=== PATIENT | female | born 1950 | race Caucasian/White ===

== ENCOUNTER 2016-06-22 20:46 | Emergency (ER) | payer MEDICARE, OTHER ==
[~2016-06-22] VITALS: Ht 165.1 cm; Wt 68.0 kg
[~2016-06-22 20:46] MED LIST: CODE1CAP21 PO; DIAZ10TA4 PO; IBUP-1482 PO; OXYC-34 PO; SIMV80TA5 PO; SUMA100T16 PO
[2016-06-22 23:19] VITALS: BP 96/56
--- NOTE | 2016-06-22 23:19 | NUR ---
BB RA; PT AMBULATORY TO ER BED 18 C/O BACK PAIN. PT AOX 3 RR EVEN AND UNLABORED. NO SOB NOTED. NAD NOTED. NO NVD AT THIS TIME. PT NOT DIAPHORETIC. PT WAITING FOR MD VELAZQUEZ.
[2016-06-22] MEDS ORDERED: oxyCODONE/APAP (5/325 MG) 1 UDTAB TABLET ONE (23:43)
[2016-06-22] MEDS ORDERED: KETOROLAC TROMETHAMINE INJ 30 MG/ML VIAL ONE (23:44)
[2016-06-22] MEDS: KETOROLAC TROMETHAMINE INJ 30 MG/ML VIAL IM ONE (23:51)
[2016-06-22] MEDS: oxyCODONE/APAP (5/325 MG) 1 UDTAB TABLET PO ONE (23:52)
[2016-06-23] MEDS ORDERED: GABA-532 PO (13:15)
[2016-06-23] MEDS ORDERED: ALBU8.5H2 IH (13:15)
[2016-06-23] MEDS ORDERED: METF500T4 PO (13:15)
[2016-06-23] MEDS ORDERED: NYST30CR3 TP (13:15)
[2016-06-23] MEDS ORDERED: ZOLP10TA6 PO (13:15)
[2016-06-23] MEDS ORDERED: FLUO15CR2 TP (13:15)
[2016-06-23] MEDS ORDERED: BUTA-247 PO (13:15)
[2016-06-23] MEDS ORDERED: ATOR40TA PO (13:15)
[2016-06-23] MEDS ORDERED: DEXT15DR6 EACHEYE (13:18)
[2016-06-23] MEDS ORDERED: ASPI81TA2 PO (15:09)
== END 2016-06-23 00:59 | disposition home or self-care (01) ==
LOC: ER 20:47
DX: M54.5 Low back pain (principal); G89.29 Other chronic pain
CPT/HCPCS: A4606; J1885; Z7610

== ENCOUNTER 2016-06-23 11:37 | Inpatient (IN) | payer MEDICARE, OTHER ==
[~2016-06-23] VITALS: Ht 170.2 cm; Wt 64.0 kg
--- NOTE | 2016-06-23 12:25 | NUR ---
SW was informed by [facility] security that pt. was discharged from ER last night and has been sleeping overnight in the sub-waiting area with all her belongings. SW met with pt. in the waiting area. Pt. had multiple bags with her. Pt.was tangential and is A&O x 4. Pt. is 66 year old and was very irritable. Pt. was well dressed. Pt. informed SW she was living in a motel but ran out of money and had to move. Pt. would not elaborate to the length of time she has been homeless. Pt. seemed to be very knowledgeable about Homeless community resources. Pt. has had a prior psychiatric admission at [facility] in April 2015. Pt. was discharged from ED earlier today but returned back to [facility] soon afterwards. Pt. was not very cooperative and upfront in answering questions that were asked of her. Often times, Pt. was yelling at during the assessment. KWASI consulted with Plant Wire Chief Luisa Lemos. Plant Wire Chief Luisa Lemos met with pt. for a crisis evaluation alongside with KWASI. Pt. refused to talk to SW. Per foam cutting supervisor Luisa Lemos, Pt. does not show insight into her mental illness. Pt. is unable to articulate a plan for her care and her thinking was rather disorganized during her crisis evaluation. Pt. did not acknowledge any wish to harm herself or others. Pt. does meet criteria for grave disability and accepting psychiatrist will be Dr. Hickman. Pt. will be admitted to [facility] on a 5150 for grave disability. KWASI along with [facility] staff [facility] escorted pt. to [facility] along with her belongings.
[2016-06-23] MEDS ORDERED: MAG HYDROX/AL HYDROX/SIMETH 30 ML UDC PO PRN (12:30)
[2016-06-23] MEDS ORDERED: ACETAMINOPHEN 325 MG TABLET PO PRN (12:30)
[2016-06-23] MEDS ORDERED: MAGNESIUM HYDROXIDE 30 ML UDC PO PRN (12:30)
[2016-06-23] MEDS ORDERED: METF500T4 PO (13:15)
[2016-06-23] MEDS ORDERED: BUTA-247 PO (13:15)
[2016-06-23] MEDS ORDERED: ZOLP10TA6 PO (13:15)
[2016-06-23] MEDS ORDERED: ATOR40TA PO (13:15)
[2016-06-23] MEDS ORDERED: NYST30CR3 TP (13:15)
[2016-06-23] MEDS ORDERED: GABA-532 PO (13:15)
[2016-06-23] MEDS ORDERED: FLUO15CR2 TP (13:15)
[2016-06-23] MEDS ORDERED: ALBU8.5H2 IH (13:15)
[2016-06-23] MEDS ORDERED: DEXT15DR6 EACHEYE (13:18)
[2016-06-23] MEDS ORDERED: ASPI81TA2 PO (15:09)
--- NOTE | 2016-06-23 15:48 | NUR ---
[facility] RN NOTES ADMITTED PT FROM ER ON 5150 HOLD FOR GD. PT. ARRIVED TO THE FLOOR AT 11:00 PT IS A/O X3 AMBULATORY AGITATED RESTLESS, ANXIOUS HYPERVERBAL. SKIN INTACT ON THE VISIBLE AREAS, PATIENT REFUSED FULL BODY ASSESSMENT. ORIENTED TO UNIT POLICY, BELONGINGS CHECKED FOR CONTRABAND, BOTH MD AWARE OF NEW ADMISSION, NEW ADMISSION ORDERS RECEIVED AND CARRIED OUT, DR. LOVELL MADE AWARE TO RECONCILE MEDS. PATIENT PROVIDED WITH SAFE AND CALM ENVIRONMENT AND CONTINUE TO MONITOR FOR SAFETY AND BEHAVIOR.
--- NOTE | 2016-06-23 16:00 | NUR ---
[facility] RN: DNR ORDER RECEIVED FROM DR. LOVELL.
[2016-06-23 16:05] VITALS: BP 116/72
[2016-06-23] MEDS ORDERED: FLUOCINONIDE 0.05% CREAM 30 GM TUBE TP PRN (19:30)
[2016-06-23] MEDS ORDERED: oxyCODONE/APAP (5/325 MG) 1 UDTAB TABLET PO PRN (19:30)
[2016-06-23] MEDS ORDERED: POLYVINYL ALCOHOL 15 ML BOTTLE OP PRN (19:30)
[2016-06-23] MEDS: ALBUTEROL FS 2.5 MG/3 ML VIAL.NEB NEB SCH (19:30)
[2016-06-23 20:00] VITALS: BP 125/96
--- NOTE | 2016-06-23 20:54 | NUR ---
RT DAKOTA REFUSED MEDS. DOES NOT WANT TO BE BOTHERED.
[2016-06-23] MEDS ORDERED: BUTALB/APAP/CAFFEINE 1 EACH TABLET PO PRN (21:00)
[2016-06-24] MEDS: ALBUTEROL FS 2.5 MG/3 ML VIAL.NEB NEB SCH ×4 (00:47→20:49)
--- NOTE | 2016-06-24 00:48 | NUR ---
RT PT DOES NOT WANT ROUTINE HHN TX. NO SOB OR DISTRESS NOTED.
[2016-06-24 07:58] VITALS: BP 99/52
[2016-06-24 08:18] LABS: ALBUMIN 3.3 g/dL (3.4-5.0); BILIRUBIN,TOTAL 0.2 mg/dL (0.2-1.0); CALCIUM, SERUM 8.7 mg/dL (8.5-10.1); CREATININE 0.7 mg/dL (0.6-1.3); POTASSIUM 4.2 mmol/L (3.5-5.1); TOTAL PROTEIN, SERUM 6.2 g/dL (6.4-8.2)
[2016-06-24] MEDS ORDERED: SUMATRIPTAN SUCCINATE 100 MG TABLET PO PRN (09:00)
[2016-06-24] MEDS ORDERED: FLUOCINONIDE 0.05% CREAM 30 GM TUBE TP PRN (09:00)
[2016-06-24] MEDS: ASPIRIN 81 MG TAB.CHEW PO SCH (11:46)
[2016-06-24] MEDS: IBUPROFEN 400 MG TABLET PO SCH ×3 (11:46→17:00)
[2016-06-24] MEDS: ATORVASTATIN 40 MG TABLET PO SCH (11:46)
[2016-06-24] MEDS: METFORMIN 500 MG TABLET PO SCH ×2 (11:46→17:00)
[2016-06-24] MEDS: GABAPENTIN 100 MG CAPSULE PO SCH ×2 (11:46→17:00)
[2016-06-24] MEDS: DULOXETINE HCL 30 MG CAPSULE.DR PO SCH (13:27)
[2016-06-24 16:07] VITALS: BP 139/80
[2016-06-24 20:00] VITALS: BP 141/72
[2016-06-24] MEDS: TEMAZEPAM 7.5 MG CAPSULE PO PRN (23:21)
[2016-06-25] MEDS: ALBUTEROL FS 2.5 MG/3 ML VIAL.NEB NEB SCH ×4 (02:35→20:20)
[2016-06-25 08:28] VITALS: BP 119/66
[2016-06-25] MEDS: ATORVASTATIN 40 MG TABLET PO SCH (08:32)
[2016-06-25] MEDS: GABAPENTIN 100 MG CAPSULE PO SCH ×2 (08:32→16:52)
[2016-06-25] MEDS: IBUPROFEN 400 MG TABLET PO SCH ×3 (08:32→16:50)
[2016-06-25] MEDS: ASPIRIN 81 MG TAB.CHEW PO SCH (08:32)
[2016-06-25] MEDS: METFORMIN 500 MG TABLET PO SCH ×2 (08:32→16:53)
[2016-06-25] MEDS: DULOXETINE HCL 30 MG CAPSULE.DR PO SCH (08:34)
[2016-06-25] MEDS: clonazePAM 0.5 MG TABLET PO PRN ×2 (11:36→17:54)
--- NOTE | 2016-06-25 11:36 | NUR ---
GPS/RN PATIENT ANXIOUS, RESTLESS, REQUESTED KLONOPIN PO. ADMINISTERED ORDERED, WILL CONTINUE TO MONITOR.
[2016-06-25 16:26] VITALS: BP 129/70
--- NOTE | 2016-06-25 17:56 | NUR ---
GPS/RN PATIENT ANXIOUS, RESTLESS, REQUESTED KLONOPIN PO. ADMINISTERED ORDERED, WILL CONTINUE TO MONITOR.
[2016-06-25 19:53] VITALS: BP 105/51
--- NOTE | 2016-06-25 20:32 | NUR ---
CHECKED ON PT FOR BREATHING TX BUT PT WAS IN SHOWER. RN NOTIFIED.
--- NOTE | 2016-06-25 20:58 | NUR ---
PT REFUSED HHNTX AT THIS TIME
[2016-06-25] MEDS: TEMAZEPAM 7.5 MG CAPSULE PO PRN (22:59)
[2016-06-26] MEDS: ALBUTEROL FS 2.5 MG/3 ML VIAL.NEB NEB SCH ×4 (01:16→19:30)
--- NOTE | 2016-06-26 01:18 | NUR ---
PT REFUSED BREATHING TX AT THIS TIME. PT DOESN'T WANT TO BE BOTHERED.
--- NOTE | 2016-06-26 01:32 | NUR ---
Pt has been anxious, guarded, hypervigilant, & blunted but redirectable. She has also been refusing her breathing treatments.
[2016-06-26 08:00] VITALS: BP 100/70
[2016-06-26] MEDS: ASPIRIN 81 MG TAB.CHEW PO SCH (08:10)
[2016-06-26] MEDS: METFORMIN 500 MG TABLET PO SCH ×2 (08:10→17:18)
[2016-06-26] MEDS: ATORVASTATIN 40 MG TABLET PO SCH (08:10)
[2016-06-26] MEDS: DULOXETINE HCL 30 MG CAPSULE.DR PO SCH (08:10)
[2016-06-26] MEDS: IBUPROFEN 400 MG TABLET PO SCH ×3 (08:10→17:18)
[2016-06-26] MEDS: GABAPENTIN 100 MG CAPSULE PO SCH ×2 (08:10→17:18)
[2016-06-26] MEDS: clonazePAM 0.5 MG TABLET PO PRN ×2 (08:33→16:25)
--- NOTE | 2016-06-26 08:35 | NUR ---
GPS/RN PATIENT ANXIOUS, RESTLESS, REQUESTED KLONOPIN PO. ADMINISTERED ORDERED, WILL CONTINUE TO MONITOR.
--- NOTE | 2016-06-26 14:53 | NUR ---
Pt. is referred and not accepted to [facility] [address] [place] [address] per Kwaku at the facility due to her previously known behavior at their sister facility. Addendum: 06/30/16 at 1624 by FABIAN VILLALPANDO Per Kwaku pt. is not allowed to be at any of their other sister facilities due to her behavior.
[2016-06-26 16:00] VITALS: BP 144/60
--- NOTE | 2016-06-26 16:25 | NUR ---
GPS/RN PATIENT ANXIOUS, RESTLESS, REQUESTED KLONOPIN PO. ADMINISTERED ORDERED, WILL CONTINUE TO MONITOR.
--- NOTE | 2016-06-26 16:40 | NUR ---
Initial discharge plan: SW is homeless and may need placement upon discharge. SW will follow up with pt and MD and will help form safe and proper discharge. At this point, pt is unsure of what she wants to do and states that a longterm is not an option for her as she needs to be independent.
[2016-06-26 20:00] VITALS: BP 129/74
[2016-06-26 20:13] VITALS: BP 129/74
--- NOTE | 2016-06-26 20:37 | NUR ---
NOTIFIED BY RN THAT PT DECLINED BREATHING TX.
[2016-06-27] MEDS: ALBUTEROL FS 2.5 MG/3 ML VIAL.NEB NEB SCH ×3 (01:14→13:30)
[2016-06-27 08:00] VITALS: BP 117/71
[2016-06-27] MEDS: GABAPENTIN 100 MG CAPSULE PO SCH ×2 (08:29→16:42)
[2016-06-27] MEDS: DULOXETINE HCL 30 MG CAPSULE.DR PO SCH (08:29)
[2016-06-27] MEDS: ASPIRIN 81 MG TAB.CHEW PO SCH (08:29)
[2016-06-27] MEDS: IBUPROFEN 400 MG TABLET PO SCH ×3 (08:30→16:42)
[2016-06-27] MEDS: ATORVASTATIN 40 MG TABLET PO SCH (08:30)
[2016-06-27] MEDS: METFORMIN 500 MG TABLET PO SCH ×2 (08:30→16:42)
[2016-06-27] MEDS: clonazePAM 0.5 MG TABLET PO PRN ×2 (08:38→20:50)
--- NOTE | 2016-06-27 12:53 | NUR ---
KWASI will refer pt. to [facility] [phone] and will follow up to see if pt. is accepted. Addendum: 06/30/16 at 1619 by FABIAN VILLALPANDO KWASI spoke with [facility] [phone] who agreed to accept the patient; however, pt. refuses to go to her facility.
[2016-06-27] MEDS ORDERED: ALBUTEROL FS 2.5 MG/3 ML VIAL.NEB NEB PRN (14:30)
[2016-06-27 16:00] VITALS: BP 114/72
[2016-06-27] MEDS: oxyCODONE/APAP (5/325 MG) 1 UDTAB TABLET PO PRN (18:11)
--- NOTE | 2016-06-27 18:15 | NUR ---
GPS/RN NOTES PATIENT COMPLAINED OF PAIN ON THE NECK AND BACK, NORCO 5/325MG X 2 TABS GIVEN ORDERED. WILL CONTINUE TO MONITOR.
--- NOTE | 2016-06-27 19:48 | NUR ---
GPS/RN NOTE: WATCHING TV PROGRAM AT THIS TIME. AWAKE, ALERT, ORIENTED X3. NO ACUTE RESPIRATORY DISTRESS NOTED. NO COMPLAINTS OR S/S OF ANY PAIN AT THIS TIME. WILL CONTINUE TO MONITOR FOR SAFETY.
[2016-06-27 20:06] VITALS: BP 107/72
--- NOTE | 2016-06-27 20:51 | NUR ---
GPS/RN NOTE: PATIENT REQUESTING FOR HER KLONOPIN, C/O THAT SHE FEELS ANXIOUS, 0.25 MG OF KLONOPIN TAB PO GIVEN.
[2016-06-27] MEDS: TEMAZEPAM 7.5 MG CAPSULE PO PRN (23:21)
--- NOTE | 2016-06-27 23:22 | NUR ---
GPS/RN NOTE: PATIENT UNABLE TO SLEEP, REQUESTED FOR HER SLEEPING PILL. TEMAZEPAM 15 MG CAP 1 PO GIVEN.
[2016-06-28] MEDS: METFORMIN 500 MG TABLET PO SCH ×2 (07:55→16:39)
[2016-06-28] MEDS: GABAPENTIN 100 MG CAPSULE PO SCH ×2 (07:55→16:39)
[2016-06-28] MEDS: ASPIRIN 81 MG TAB.CHEW PO SCH (07:55)
[2016-06-28] MEDS: ATORVASTATIN 40 MG TABLET PO SCH (07:55)
[2016-06-28] MEDS: IBUPROFEN 400 MG TABLET PO SCH ×3 (07:55→16:39)
[2016-06-28 08:00] VITALS: BP 125/68
[2016-06-28] MEDS: DULOXETINE HCL 30 MG CAPSULE.DR PO SCH (08:40)
[2016-06-28] MEDS: clonazePAM 0.5 MG TABLET PO PRN ×2 (08:40→15:23)
--- NOTE | 2016-06-28 08:40 | NUR ---
GPS/RN PATIENT ANXIOUS, RESTLESS, REQUESTED KLONOPIN PO, ADMINISTERED ORDERED, WILL CONTINUE TO MONITOR.
--- NOTE | 2016-06-28 15:23 | NUR ---
GPS/RN PATIENT ANXIOUS, RESTLESS, REQUESTED KLONOPIN PO, ADMINISTERED ORDERED, WILL CONTINUE TO MONITOR.
[2016-06-28 16:00] VITALS: BP 147/75
[2016-06-28] MEDS: oxyCODONE/APAP (5/325 MG) 1 UDTAB TABLET PO PRN (16:42)
--- NOTE | 2016-06-28 16:42 | NUR ---
GPS/RN PATIENT REPORTS 8/10 BACK PAIN, ADMINISTERED PERCOCET PO ORDERED. WILL CONTINUE TO MONITOR
--- NOTE | 2016-06-28 20:00 | NUR ---
RN NOTES: PT IN BED, A/O X3, ON ROOM AIR, DENIES ANY CHEST PAIN DISCOMFORT, PT COOPERATIVE AND CALM BUT NOTED TO BE EASILY GET IRRITATED. PT HAS LIMITED CONCENTRATION AND POOR JUDGMENT. SAFETY PRECAUTIONS FOR FALL INITAITED, WILL CONTINUE FREQUENT MONITORING [id number] FOR SAFETY AND BEHAVIOR
--- NOTE | 2016-06-28 20:30 | NUR ---
RN NOTES: PT SEEN BY DR GARCIA, NEUROLOGIST, HE DISCUSSED SOME TEST FOR THE PT BUT PT REFUSED TREATMENT,
[2016-06-28 20:40] VITALS: BP 133/68
[2016-06-28] MEDS: TEMAZEPAM 7.5 MG CAPSULE PO PRN (23:12)
--- NOTE | 2016-06-28 23:12 | NUR ---
RN NOTES: PT REQUESTED FOR HER SLEEPING PILL, SHE STATED SHE ASKED THE DOCTOR TO INCREASE THE DOSAGE BECAUSE THE PREVIOUS DOSAGE DOES NOT HELP HER TO GET A GOOD NIGHT SLEEP, PRN RESTORIL 22.5 MG TAB PO ADMINISTERED TO THE PT AT THIS TIME, EDUCATE PT REGARDING MEDICATION SIDE EFFECT, WILL CONTINUE TO MONITOR AND REASSESS
[2016-06-29 08:00] VITALS: BP 101/57
[2016-06-29] MEDS: ATORVASTATIN 40 MG TABLET PO SCH (08:36)
[2016-06-29] MEDS: DULOXETINE HCL 30 MG CAPSULE.DR PO SCH (08:36)
[2016-06-29] MEDS: METFORMIN 500 MG TABLET PO SCH ×2 (08:36→16:35)
[2016-06-29] MEDS: IBUPROFEN 400 MG TABLET PO SCH ×3 (08:36→16:35)
[2016-06-29] MEDS: GABAPENTIN 100 MG CAPSULE PO SCH ×2 (08:36→16:35)
[2016-06-29] MEDS: ASPIRIN 81 MG TAB.CHEW PO SCH (08:36)
[2016-06-29] MEDS: clonazePAM 0.5 MG TABLET PO PRN ×2 (08:58→18:08)
--- NOTE | 2016-06-29 09:00 | NUR ---
[facility]PS RN: PATIENT C/O ANXIETY AND REQUESTED KLONOPIN. ADMINISTERED KLONOPIN 0.25 MG PO ORDERED. PROVIDED WITH CALM AND SAFE ENVIRONMENT, CONTINUE TO MONITOR.
[2016-06-29] MEDS: oxyCODONE/APAP (5/325 MG) 1 UDTAB TABLET PO PRN ×2 (11:27→19:44)
[2016-06-29 16:00] VITALS: BP 118/59
[2016-06-29 20:00] VITALS: BP 101/66
[2016-06-29] MEDS: TEMAZEPAM 7.5 MG CAPSULE PO PRN (22:02)
[2016-06-30] MEDS: clonazePAM 0.5 MG TABLET PO PRN ×2 (04:55→15:31)
[2016-06-30 08:00] VITALS: BP 97/57
[2016-06-30] MEDS: IBUPROFEN 400 MG TABLET PO SCH ×3 (09:31→16:12)
[2016-06-30] MEDS: ASPIRIN 81 MG TAB.CHEW PO SCH (09:31)
[2016-06-30] MEDS: ATORVASTATIN 40 MG TABLET PO SCH (09:31)
[2016-06-30] MEDS: DULOXETINE HCL 30 MG CAPSULE.DR PO SCH (09:31)
[2016-06-30] MEDS: METFORMIN 500 MG TABLET PO SCH ×2 (09:31→16:12)
[2016-06-30] MEDS: GABAPENTIN 100 MG CAPSULE PO SCH ×2 (09:31→16:12)
[2016-06-30] MEDS: oxyCODONE/APAP (5/325 MG) 1 UDTAB TABLET PO PRN (11:24)
--- NOTE | 2016-06-30 15:35 | NUR ---
[facility] RN: ADMINISTERED KLONOPIN 0.25 MG PO FOR C/O ANXIETY. VS STABLE, CONTINUE TO MONITOR.
[2016-06-30 16:00] VITALS: BP 103/58
--- NOTE | 2016-06-30 16:20 | NUR ---
SW contacted Lucy from [facility] [phone] about pt and per Lucy, pt. is very difficult as she already knows her from before and will not be able to accept her at any of her facilities.
--- NOTE | 2016-06-30 16:22 | NUR ---
KWASI contacted Brit [phone], who works with different board and cares, and she agreed to come and assess the patient today but has not yet. KWASI will follow up
--- NOTE | 2016-06-30 16:23 | NUR ---
SW spoke with pt. but pt. refuses to be placed in a care home, does not want a large facility with too many people and does not want a intermediate or a motel at this time. Pt. is very difficult as she has limited income and is very selective with the area and the type of place she wants to go to. KWASI will follow up
[2016-06-30 20:00] VITALS: BP 123/67
[2016-06-30] MEDS: TEMAZEPAM 7.5 MG CAPSULE PO PRN (22:22)
[2016-07-01] MEDS: clonazePAM 0.5 MG TABLET PO PRN ×3 (03:11→18:37)
[2016-07-01 08:24] VITALS: BP 100/62
[2016-07-01] MEDS: IBUPROFEN 400 MG TABLET PO SCH ×3 (09:49→16:57)
[2016-07-01] MEDS: ATORVASTATIN 40 MG TABLET PO SCH (09:49)
[2016-07-01] MEDS: GABAPENTIN 100 MG CAPSULE PO SCH ×2 (09:49→16:57)
[2016-07-01] MEDS: DULOXETINE HCL 30 MG CAPSULE.DR PO SCH (09:49)
[2016-07-01] MEDS: ASPIRIN 81 MG TAB.CHEW PO SCH (09:49)
[2016-07-01] MEDS: METFORMIN 500 MG TABLET PO SCH ×2 (09:49→16:57)
[2016-07-01] MEDS: oxyCODONE/APAP (5/325 MG) 1 UDTAB TABLET PO PRN ×2 (09:53→17:41)
--- NOTE | 2016-07-01 11:15 | NUR ---
GPS RN: ADMINISTERED KLONOPIN 0.25 MG PO FOR C/O ANXIETY PER PATIENT'S REQUEST. PROVIDED WITH CALM AND SAFE ENVIRONMENT, VS STABLE, CONTINUE TO MONITOR.
[2016-07-01 15:59] VITALS: BP 109/71
--- NOTE | 2016-07-01 18:39 | NUR ---
[facility]PS RN: ADMINISTERED KLONOPIN 0.25 MG PO FOR C/O ANXIETY, VSS, CONTINUE TO MONITOR.
[2016-07-01 20:00] VITALS: BP 108/70
[2016-07-01] MEDS: TEMAZEPAM 7.5 MG CAPSULE PO PRN (22:00)
[2016-07-02] MEDS: clonazePAM 0.5 MG TABLET PO PRN ×3 (03:30→16:33)
[2016-07-02 08:00] VITALS: BP 116/70
[2016-07-02] MEDS: GABAPENTIN 100 MG CAPSULE PO SCH ×2 (08:48→16:33)
[2016-07-02] MEDS: ASPIRIN 81 MG TAB.CHEW PO SCH (08:48)
[2016-07-02] MEDS: ATORVASTATIN 40 MG TABLET PO SCH (08:49)
[2016-07-02] MEDS: DULOXETINE HCL 30 MG CAPSULE.DR PO SCH (08:49)
[2016-07-02] MEDS: METFORMIN 500 MG TABLET PO SCH ×2 (08:49→16:33)
[2016-07-02] MEDS: IBUPROFEN 400 MG TABLET PO SCH ×3 (08:49→16:33)
[2016-07-02] MEDS: oxyCODONE/APAP (5/325 MG) 1 UDTAB TABLET PO PRN ×2 (10:25→19:45)
--- NOTE | 2016-07-02 10:30 | NUR ---
GPS/RN PATIENT REPORTS 8/10 FOR GENERALIZED PAIN, ADMINISTERED PERCOCET PO ORDERED. WILL CONTINUE TO MONITOR
[2016-07-02 15:49] VITALS: BP 103/60
[2016-07-02 19:57] VITALS: BP 121/69
[2016-07-02] MEDS: TEMAZEPAM 7.5 MG CAPSULE PO PRN (22:27)
[2016-07-03] MEDS: clonazePAM 0.5 MG TABLET PO PRN ×3 (03:04→19:54)
[2016-07-03 08:00] VITALS: BP 100/55
[2016-07-03] MEDS: METFORMIN 500 MG TABLET PO SCH ×2 (08:25→16:32)
[2016-07-03] MEDS: GABAPENTIN 100 MG CAPSULE PO SCH ×2 (08:25→16:32)
[2016-07-03] MEDS: ATORVASTATIN 40 MG TABLET PO SCH (08:25)
[2016-07-03] MEDS: ASPIRIN 81 MG TAB.CHEW PO SCH (08:25)
[2016-07-03] MEDS: DULOXETINE HCL 30 MG CAPSULE.DR PO SCH (08:26)
[2016-07-03] MEDS: IBUPROFEN 400 MG TABLET PO SCH ×3 (08:26→16:32)
[2016-07-03] MEDS: oxyCODONE/APAP (5/325 MG) 1 UDTAB TABLET PO PRN ×2 (09:36→17:45)
--- NOTE | 2016-07-03 09:37 | NUR ---
GPS/RN PATIENT REPORTS 10 FOR lower back PAIN, ADMINISTERED PERCOCET PO ORDERED. WILL CONTINUE TO MONITOR
--- NOTE | 2016-07-03 11:20 | NUR ---
KWASI contacted Brit [phone] and she is able to accept the patient at the [place] location. KWASI notified the patient, pt. refuses to go to [place]. None of the other houses at different areas have availability at this time.
--- NOTE | 2016-07-03 11:32 | NUR ---
[id number]: GAVE KLONOPIN 0.25 MG PO DUE TO SEVERE ANXIETY UPON PT REQUEST AND WILL CONTINUE TO MONITOR FOR EFFECTIVENESS OF MEDICATION
--- NOTE | 2016-07-03 11:43 | NUR ---
SW spoke with pt again regarding other options, pt. continues to insist that she needs something for not even a month as she is going to make her own arrangements after and will be renting an apartment with a roommate. Pt. continues to refuse two options provided and refuses to be referred to an assisted living, correction, or any other large facility. Pt. refuses to go to a homeless custodial and refuses to go to a motel also, stating, it will cost too much.
[2016-07-03 16:00] VITALS: BP 102/55
--- NOTE | 2016-07-03 17:48 | NUR ---
pt. c/o generalized body pain 12/03 oxycodone 1mg po prn given vital signs wnl will conitinue to monitor Addendum: 07/03/16 at 1759 by DAVID CORBETT RN gave oxycodone acetaminophen 5/325 mg (2tabs)
[2016-07-03 19:44] VITALS: BP 100/60
[2016-07-03] MEDS: TEMAZEPAM 7.5 MG CAPSULE PO PRN (23:05)
[2016-07-04] MEDS: clonazePAM 0.5 MG TABLET PO PRN ×2 (05:08→10:47)
[2016-07-04 08:00] VITALS: BP 100/65
[2016-07-04] MEDS: DULOXETINE HCL 30 MG CAPSULE.DR PO SCH (08:39)
[2016-07-04] MEDS: ASPIRIN 81 MG TAB.CHEW PO SCH (08:39)
[2016-07-04] MEDS: ATORVASTATIN 40 MG TABLET PO SCH (08:39)
[2016-07-04] MEDS: IBUPROFEN 400 MG TABLET PO SCH (08:39)
[2016-07-04] MEDS: METFORMIN 500 MG TABLET PO SCH (08:39)
[2016-07-04] MEDS: GABAPENTIN 100 MG CAPSULE PO SCH (08:40)
[2016-07-04] MEDS: oxyCODONE/APAP (5/325 MG) 1 UDTAB TABLET PO PRN (09:16)
--- NOTE | 2016-07-04 09:17 | NUR ---
gave oxycodone acetaminophen 5/325 mg (2tabs) PO PRN pt. c/o generalized body pain 11/02 vital signs wnl will continue to monitor
--- NOTE | 2016-07-04 10:38 | NUR ---
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 PT HAS BRIGHT AFFECT. PT IS ACTIVE. PT IS CONVERSING WITH PEERS. PT ATE WELL.
--- NOTE | 2016-07-04 10:51 | NUR ---
[facility] RN: ADMINISTERED KLONOPIN 0.25 MG PO PRN UP ON PT. REQUEST FOR C/O ANXIETY RESTLESS, , VSS,WNL WILL CONTINUE TO MONITOR.
--- NOTE | 2016-07-04 11:00 | NUR ---
[id number]: PT HAS BRIGHT AFFECT. PT PARTICIPATED IN ACTIVITIES. PT IS ABLE TO FOLLOW RULES. PT IS ENGAGED IN CONVERSATION WITH PEERS. PT APPLIED MAKEUP WITH STAFF SUPERVISION. PT IS CALM AND COOPERATIVE WITH STAFF.
--- NOTE | 2016-07-04 11:45 | NUR ---
SW spoke with the patient again, and pt. still refuses to go to any of the available options. Pt. continues to request a house she can go to for short term with the area of her preference and does not want to spend more than what she has (stating there is more money, but when SW gives options with more money she declines). Pt. is very difficult and per SS director, needs to be escorted out as she has been ready for discharge but does not agree to any options provided. Pt. even requested to speak with the SS director with the same outcome. Pt. continues to think she needs to get more than she is provided.
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
--- NOTE | 2016-07-04 12:45 | NUR ---
[id number]: PT IS ACCUSING STAFF OF STEALING POSSESSIONS.
--- NOTE | 2016-07-04 13:30 | NUR ---
[id number]: CERTIFIED WELLNESS PROGRAM COORDINATOR GAVE SAFE OPTIONS FOR DISCHARGE TO EITHER MOTEL, HOMELESS SNF, SISTER'S HOUSE, ASSISTED LIVING, SNF BUT PT REFUSED. PT REFUSED TO GET IN THE TAXI AND STATED, "I WANT TO GO WHEREVER I WANT TO GO," ESCORTED PT TO LOBBY TO THE TAXI BUT PT REFUSED. PT WANTED TO SMOKE AND STATED, "I DON'T WANT TO RIDE THE TAXI AND I HAVE ENOUGH MONEY." PT IS A/O4. PT DENIES SI/HI/AVH. PT IS 66 YEARS FEMALE. COMPLIANT WITH MEDICATIONS, COOPERATIVE WITH TREATMENT PLANS. BEHAVIORAL IMPROVED, PSYCHIATRIC TX PLANS MET, MEDICAL TX PLANS DEFERRED FOR CONTINUAL MONITORING. EDUCATED PT ABOUT AFTER CARE PLAN AND COPY PROVIDED. RETURN PERSONAL BELONGINGS TO PT. MEDICATIONS RECONCILED WITH DR. AHUJA AND DR. SNOW. PT SIGNED DISCHARGE PAPERWORK. PT REFUSED SKIN ASSESSMENT.
--- NOTE | 2016-07-04 14:10 | NUR ---
Discharge note: Pt. agreed to be discharged to [facility] [address] [facility] [phone] after she was told she needs to be escorted out with security as at this point she is trespassing as she is discharged and refuses to leave. Pt. then was taken down as taxi arrived and was provided with a taxi voucher. As she was downstairs, pt. refused to get into the taxi and said she wants to go where she wants to go, and that she wants to smoke. Pt. was provided with resources and numbers of the accepting facilities in case she changes her mind. Pt. was alert and oriented , denied having suicidal/homicidal ideations, declined all resources, and wanted to make her own arrangements as she refused everything arranged by the hospital. provided pt. with a referral to [facility] [address] [facility] [id number] . Pt. is a smoker, hence, was [address] [facility] 5:30 PM. Discharge instructions were provided to the patient and discharge paperwork has been signed.
== END 2016-07-04 13:30 | disposition home or self-care (01) | DRG 885 ==
LOC: GPS 11:37
PROVIDERS: ADMIT Psychiatry & Neurology Psychiatry; ATTEND Internal Medicine
DX: F33.2 Major depressive disorder, recurrent severe without psychotic features (principal); E78.5 Hyperlipidemia, unspecified; I10 Essential (primary) hypertension; K21.9 Gastro-esophageal reflux disease without esophagitis; E11.42 Type 2 diabetes mellitus with diabetic polyneuropathy; Z59.0 Homelessness; M06.9 Rheumatoid arthritis, unspecified; G89.29 Other chronic pain; M54.5 Low back pain; G62.9 Polyneuropathy, unspecified; F41.0 Panic disorder [episodic paroxysmal anxiety]; J44.9 Chronic obstructive pulmonary disease, unspecified; M54.17 Radiculopathy, lumbosacral region; Z66 Do not resuscitate; Z79.84 Long term (current) use of oral hypoglycemic drugs
CPT/HCPCS: 36415; 80053-TC; 80061-TC; 94799-TC

== ENCOUNTER 2016-07-15 03:16 | Emergency (ER) | payer MEDICARE, OTHER ==
[~2016-07-15] VITALS: Ht 170.2 cm; Wt 59.0 kg
[~2016-07-15 03:16] MED LIST changes: +ALBU8.5H2 IH; +ASPI81TA2 PO; +ATOR40TA PO; +BUTA-247 PO; -CODE1CAP21 PO; +DEXT15DR6 EACHEYE; -DIAZ10TA4 PO; +FLUO15CR2 TP; +GABA-532 PO; +METF500T4 PO; +NYST30CR3 TP; -SIMV80TA5 PO
[2016-07-15 03:20] VITALS: BP 130/77
[2016-07-15] MEDS ORDERED: KETOROLAC TROMETHAMINE INJ 60 MG/2 ML VIAL IM ONE (04:30)
[2016-07-15] MEDS ORDERED: KETOROLAC TROMETHAMINE INJ 30 MG/ML VIAL ONE (04:35)
== END 2016-07-15 06:10 | disposition home or self-care (01) ==
LOC: ER 03:17
DX: M54.5 Low back pain (principal); G89.29 Other chronic pain; E11.9 Type 2 diabetes mellitus without complications; Z79.82 Long term (current) use of aspirin
CPT/HCPCS: A4606; J1885; Z7610

== ENCOUNTER 2016-08-02 20:20 | Emergency (ER) | payer MEDICARE, OTHER ==
[~2016-08-02] VITALS: Ht 170.2 cm; Wt 59.0 kg
--- NOTE | 2016-08-02 20:40 | NUR ---
CALLED FOR TRIAGE; INFORMED "SHE STEPPED OUT"
--- NOTE | 2016-08-02 21:00 | NUR ---
CALLED AGAIN; NOT IN LOBBY
--- NOTE | 2016-08-02 21:37 | NUR ---
CALLED AGAIN; NO ANSWER
--- NOTE | 2016-08-02 23:50 | NUR ---
RETURNED TO ER LOBBY TO BE SEEN BY
[2016-08-02 23:51] VITALS: BP 118/56
== END 2016-08-03 00:09 | disposition left against medical advice (07) ==
LOC: ER 20:29
DX: Z53.21 Procedure and treatment not carried out due to patient leaving prior to being seen by health care provider (principal)
CPT/HCPCS: A4606; Z7610

== ENCOUNTER 2016-08-03 00:06 | Emergency (ER) | payer MEDICARE, OTHER ==
[~2016-08-03] VITALS: Ht 167.6 cm; Wt 59.0 kg
[2016-08-03 00:06] VITALS: BP 135/81
[2016-08-03] MEDS ORDERED: LORAZEPAM 1 MG TABLET ONE (00:44)
[2016-08-03] MEDS ORDERED: KETOROLAC TROMETHAMINE INJ 30 MG/ML VIAL ONE (00:45)
[2016-08-03] MEDS ORDERED: LORAZEPAM 1 MG TABLET PO ONE (01:00)
[2016-08-03] MEDS ORDERED: KETOROLAC TROMETHAMINE INJ 60 MG/2 ML VIAL IM ONE (01:00)
== END 2016-08-03 01:11 | disposition home or self-care (01) ==
LOC: ER 00:08
DX: F41.1 Generalized anxiety disorder (principal); R20.9 Unspecified disturbances of skin sensation; G89.29 Other chronic pain; I44.0 Atrioventricular block, first degree; M19.90 Unspecified osteoarthritis, unspecified site; F41.0 Panic disorder [episodic paroxysmal anxiety]; Z79.82 Long term (current) use of aspirin
CPT/HCPCS: A4606; J1885; Z7610

== ENCOUNTER 2016-08-20 02:33 | Emergency (ER) | payer MEDICARE, OTHER ==
[~2016-08-20] VITALS: Ht 165.1 cm; Wt 68.0 kg
[2016-08-20 02:35] VITALS: BP 110/65
--- NOTE | 2016-08-20 04:24 | NUR ---
DR. HOPSON AT BEDSIDE FOR EVAL.
--- NOTE | 2016-08-20 04:36 | NUR ---
Patient discharged to home in stable condition. Written and verbal after care instructions given. Patient refused d/c instruction. ambulatory with a steady gait.
== END 2016-08-20 04:39 | disposition home or self-care (01) ==
LOC: ER 02:33
DX: M25.561 Pain in right knee (principal); M25.562 Pain in left knee; G89.29 Other chronic pain; E11.9 Type 2 diabetes mellitus without complications; Z79.82 Long term (current) use of aspirin; F41.9 Anxiety disorder, unspecified; F32.9 Major depressive disorder, single episode, unspecified; M19.90 Unspecified osteoarthritis, unspecified site
CPT/HCPCS: 99281; A4606; Z7502; Z7610

== ENCOUNTER 2016-11-14 09:14 | Emergency (ER) | payer MEDICARE, OTHER ==
[~2016-11-14] VITALS: Ht 170.2 cm; Wt 59.0 kg
[2016-11-14 09:14] VITALS: BP 145/81
[2016-11-14] MEDS ORDERED: KETOROLAC TROMETHAMINE INJ 60 MG/2 ML VIAL IM ONE (09:30)
[2016-11-14] MEDS ORDERED: KETOROLAC TROMETHAMINE INJ 30 MG/ML VIAL ONE (09:31)
== END 2016-11-14 10:09 | disposition home or self-care (01) ==
LOC: ER 09:16
DX: M54.5 Low back pain (principal); G89.29 Other chronic pain; F41.0 Panic disorder [episodic paroxysmal anxiety]; E11.9 Type 2 diabetes mellitus without complications; M51.26 Other intervertebral disc displacement, lumbar region; Z79.82 Long term (current) use of aspirin; Z98.890 Other specified postprocedural states
CPT/HCPCS: A4606; J1885; Z7610

== ENCOUNTER → 2020-08-10 | Outpatient (CLI) | payer MEDICARE, OTHER ==
[~2020-08-10] MED LIST changes: -ALBU8.5H2 IH; +ALBU8.5H8 IH; +ASPI-1169 PO; -ASPI81TA2 PO; -IBUP-1482 PO; +IBUP-1957 PO; +METF-440 PO; -METF500T4 PO; +OXYC-133 PO; -OXYC-34 PO
== END ==
LOC: MSC 11:00
PROVIDERS: ATTEND Anesthesiology
DX: G89.4 Chronic pain syndrome (principal); M54.12 Radiculopathy, cervical region; M54.5 Low back pain; Z79.891 Long term (current) use of opiate analgesic